=== PATIENT | male | born 1990 | race Caucasian/White ===

== ENCOUNTER 2018-02-27 07:26 | Emergency (ER) | payer MEDICAID ==
[2018-02-27] MEDS ORDERED: HYDROmorphONE/DILAUDID 2 MG/ML INJ IVP ONE (08:10)
[2018-02-27] MEDS ORDERED: KETOROLAC 30 MG/1 ML SDV IVP ONE (08:10)
[2018-02-27] MEDS ORDERED: ONDANSETRON 4 MG/2 ML VIAL IVP ONE (08:10)
[2018-02-27] MEDS ORDERED: NS 1,000 ML IV ONE (08:10)
[2018-02-27] MEDS ORDERED: HYDROmorphONE/DILAUDID 1 MG/ML INJ ONE (08:16)
--- NOTE | 2018-02-27 08:22 | EDPHY ---
H & P Time Seen by Provider: 02/27/18 08:10 HPI/ROS: HPI Kidney stone pain. 17-year-old male by private vehicle with and child. Patient has a history of kidney stones. He reports waking up at 4:00 a.m. This morning with right flank pain with radiation to the right lower quadrant of his abdomen. He reports that he tried to drink fluids and tough it out. He reports the pain is worsening. He reports having nausea with some dry heaving. He reports he has had kidney stones in the past and this is the same pain he has had. ROS: Constitutional: No fever, no chills. No weakness. Respiratory: No cough. No shortness of breath. Cardiac: No chest pain, no palpitations. Gastrointestinal: No abdominal pain, no vomiting, no diarrhea. Genitourinary: No hematuria. No dysuria or increased frequency with urination. Denies testicular pain. Musculoskeletal: As above. No neck pain. No myalgias or arthralgias. Skin: No rashes. Neurological: No headache. No focal weakness or altered sensation. Past medical history: Kidney stones. Social history: Here with his . Nonsmoker. No alcohol. Physical Exam: General Appearance: Alert, he appears uncomfortable. Large man. This patient is responding to questions appropriately and in full sentences. This patient appears well-hydrated and well-nourished. Eyes: Pupils equal and round no pallor or injection. No lid edema, erythema or injection. Respiratory: There are no retractions, lungs are clear to auscultation with good air movement bilaterally. Cardiovascular: Regular rate and rhythm. No murmur. Gastrointestinal: Abdomen is soft with mild and vague right lower tenderness on palpation, no masses, bowel sounds normal. No focal tenderness at McBurney' s point. No Cotton sign. Neurological: Motor sensory function is grossly intact. Cranial nerves are normal. Gait is normal. Skin: Warm and dry, no rashes. Musculoskeletal: Vague right CVA tenderness on palpation. No left-sided CVA tenderness on palpation. Extremities are symmetrical. All joints range without pain or impingement. Psychiatric: No agitation. No depression. Database: EKG: Imaging: CT scan of abdomen and pelvis without contrast: Significant for a small distal ureteral stone on the right side. There is also a focal dilation and thickening of the upper stomach. Etiology unknown. Reading radiologist advises CT scan of abdomen with IV and oral contrast to further clarify. Results were discussed with staff radiologist Dr. Collins Conley. 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 Study otherwise unremarkable. Radiologist recommends no further action. Results discussed with staff radiologist Dr. Collins Conley. Procedures: Emergency department course: Vital signs reviewed and are normal. IV was placed. He was started on IV normal saline with 1-2 L to be given over the next 1-2 hours. Medication allergies reviewed. He has no contraindications to NSAIDs. No history of renal dysfunction or peptic ulcer disease. He will initially be given 30 mg of IV Toradol, 0.5 mg of IV hydromorphone and 4 mg of IV Zofran. He consents for CT imaging to evaluate for a kidney stone. 9:20 a.m., patient re-evaluated. Resting comfortably at this time. Pain is well controlled. He is taking oral fluids. Denies any previous anatomical issues involving as stomach. I discussed the results of his CT as above. He consents for repeat CT imaging with contrast is noted. 10:30 a.m., patient re-evaluated. Resting comfortably at this time. He was given oral Flomax. Results of his CT scan is noted above discussed with him. He feels comfortable going home. I discussed follow-up with Urology. Outpatient management of kidney stones reviewed. I will prescribe him Vicodin Flomax and Zofran. He can start taking ibuprofen again tomorrow morning. He feels comfortable with this plan. Return to emergency department precautions and follow-up discussed with him. All of his questions were answered. He was discharged in good condition. Differential Diagnosis: The differential diagnosis on this patient includes but is not limited to ureterolithiasis. Testicular torsion, appendicitis, colitis unlikely. This represents a partial list of diagnoses considered. These considerations are based on history, physical exam, past history, reassessment and diagnostic testing. Smoking Status: Never smoked Constitutional: Initial Vital Signs Temperature (C) 36.3 C 02/27/18 07:37 Heart Rate 75 02/27/18 07:37 Respiratory Rate 17 02/27/18 07:37 Blood Pressure 138/100 H 02/27/18 07:37 O2 Sat (%) 98 02/27/18 07:37 O2 Delivery Mode Room Air Allergies/Adverse Reactions: aspirin Allergy (Verified 02/27/18 07:36) Home Medications: Medication Instructions Recorded Gabapentin 02/27/18 Hydrocodone/APAP 5/325 [[place] 1 - 2 tab PO Q4-6PRN PRN #10 tab 02/27/18 5/325 (*)] Hydroxyzine HCl 02/27/18 Latuda 02/27/18 Ondansetron Odt [Zofran Odt 4 mg 4 mg PO Q4PRN PRN #10 tab 02/27/18 (*)] Tamsulosin HCl [Flomax 0.4 MG (*)] 0.4 mg PO DAILY #4 cap 02/27/18 Medical Decision Making - Diagnostics Imaging Results: Imaging Impressions Abdomen/Pelvis CT 02/27/18 08:11 Impression: 1. Small distal right ureteral calculus, about the past in the urinary bladder. 2. Unusual appearance to the gastric fundus. It is difficult to exclude an intramural cystic abnormality although there is a suggestion that this communicates with the gastric lumen. Is there history of previous gastric surgery or trauma? If not, recommend CT with oral and IV contrast for further evaluation. 3. Steatosis of the liver without secondary evidence of cirrhosis. Results called and discussed with Reinaldo Pacheco MD, at 02/27/2018 9:07 Attention: This CT examination is specifically designed to evaluate patients who are clinically suspected of having acute obstructive uropathy. This examination does not use radiographic contrast, and as such, provides only a limited evaluation of the abdomen, pelvis and retroperitoneum. If there is further clinical suspicion for pathological conditions other than obstructive uropathy, a complete CT evaluation of the abdomen and pelvis utilizing intravenous, oral, and rectal contrast should be considered. General information for patients regarding this examination can be found at [employer]. If you have questions or comments about this report, please contact me at [phone](hospital) or [phone] (cell). 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 Results called to Dr. Pacheco. General information for patients regarding this examination can be found at [employer]. If you have questions or comments about this report, please contact me at (hospital) or [phone] (cell). - Data Points Laboratory Results: Laboratory Results 02/27/18 08:10 02/27/18 02/27/18 10:20 08:10 Sodium 141 mEq/L mEq/L (135-145) Potassium 4.5 mEq/L mEq/L (3.3-5.0) Chloride 102 mEq/L mEq/L (97-110) Carbon Dioxide 24 mEq/l mEq/l (22-31) Anion Gap 15 mEq/L mEq/L (8-16) BUN 17 mg/dL mg/dL (7-23) Creatinine 1.0 mg/dL mg/dL (0.7-1.3) Estimated GFR > 60 Glucose 115 mg/dL H mg/dL (70-100) Calcium 9.6 mg/dL mg/dL (8.5-10.4) Urine Color YELLOW Urine Appearance CLEAR Urine pH 7.0 (5.0-7.5) Ur Specific Ferguson 1.029 (1.002-1.030) Urine Protein 1+ H (NEGATIVE) Urine Ketones NEGATIVE (NEGATIVE) Urine Blood 1+ H (NEGATIVE) Urine Nitrate NEGATIVE (NEGATIVE) Urine Bilirubin NEGATIVE (NEGATIVE) Urine Urobilinogen NEGATIVE EU EU (0.2-1.0) Ur Leukocyte Esterase NEGATIVE (NEGATIVE) Urine RBC 3-5 /hpf H /hpf (0-3) Urine WBC 1-3 /hpf /hpf (0-3) Ur Epithelial Cells TRACE /lpf /lpf (NONE-1+) Urine Mucus TRACE /lpf /lpf (NONE-1+) Urine Glucose NEGATIVE (NEGATIVE) Medications Given: Discontinued Medications Hydromorphone HCl (Dilaudid) 0.5 mg IVP EDNOW ONE Stop: 02/27/18 08:11 Last Admin: 02/27/18 08:20 Dose: 0.5 mg Sodium Chloride (Ns) 1,000 mls @ 0 mls/hr IV EDNOW ONE; Wide Open PRN Reason: Protocol Stop: 02/27/18 08:11 Last Admin: 02/27/18 08:19 Dose: 1,000 mls Ketorolac Tromethamine (Toradol) 30 mg IVP EDNOW ONE Stop: 02/27/18 08:11 Last Admin: 02/27/18 08:20 Dose: 30 mg Ondansetron HCl (Zofran) 4 mg IVP EDNOW ONE Stop: 02/27/18 08:11 Last Admin: 02/27/18 08:20 Dose: 4 mg Tamsulosin HCl (Flomax) 0.4 mg PO EDNOW ONE Stop: 02/27/18 10:34 Last Admin: 02/27/18 10:43 Dose: 0.4 mg Departure - Departure Disposition: Home, Routine, Self-Care Clinical Impression: Kidney stone on right side, Renal colic on right side Condition: Good Instructions: Kidney Stones (ED) Additional Instructions: Read and follow provided instructions. Follow-up with Urology in the next few days for re-evaluation as discussed. I have also given you a referral to a primary care physician for your ongoing healthcare management. Take medication as prescribed only. You can start taking ibuprofen tomorrow morning. Ibuprofen dosin mg every 6 hours with meals for the next 3 days only. Take only as needed for pain. Return to the emergency department for worsening symptoms, worsening pain, vomiting and inability to keep fluids down despite medications, fever or other serious concerns. Referrals: Glory Zuniga MD [Medical Doctor] - As per Instructions NONE *PRIMARY CARE P,. [Primary Care Provider] - As per Instructions Oscar Ruiz MD [[facility] [place] - As per Instructions Sahil Canales MD [[facility] [place] Primary Care Provider] - As per Instructions Prescriptions: Hydrocodone/APAP 5/325 [[place] 5/325 (*)] 1 - 2 tab PO Q4-6PRN PRN #10 tab PRN Reason: Pain, Moderate Ondansetron Odt [Zofran Odt 4 mg (*)] 4 mg PO Q4PRN PRN #10 tab PRN Reason: For Nausea & Vomiting Tamsulosin HCl [Flomax 0.4 MG (*)] 0.4 mg PO DAILY #4 cap
[2018-02-27] MEDS ORDERED: IOPAMIDOL (ISOVUE-300) 100 ML BTL ONE (09:59)
[2018-02-27] MEDS ORDERED: TAMSULOSIN HCL 0.4 MG CAP PO ONE (10:33)
[2018-02-27 11:09] VITALS: BP 139/93
== END 2018-02-27 11:08 | disposition home or self-care (01) ==
LOC: EDBD 07:26
DX: N20.0 Calculus of kidney (principal); E86.9 Volume depletion, unspecified
CPT/HCPCS: 96374; J1170; J1885; J2405; Q9967

== ENCOUNTER 2018-06-17 19:15 | Emergency (ER) | payer OTHER, MEDICAID ==
--- NOTE | 2018-06-17 19:41 | EDPHY ---
H & P Stated Complaint: DIARRHEA/VOMIT SINCE YEST, WHOLE FAM HAS Time Seen by Provider: 06/17/18 19:39 HPI/ROS: HPI: This is a 27-year-old male who presents with Chief Complaint: DIARRHEA/VOMIT SINCE YEST, WHOLE FAM HAS Location: GI Quality: Diarrhea, vomiting Duration: Since yesterday approximately 24 hr Signs and Symptoms: no fever,+ nausea, + vomiting, no hematemesis, no blood in stool, no abdominal bloating, + diarrhea, no back pain, no urinary symptoms, no testicular/groin pain, no indigestion, no chest pain, no shortness of breath, no abdominal pain Timing: Acute, intermittent episodes Severity: Moderate Context: Patient has a history of kidney stones, posttraumatic stress disorder presents to the emergency room accompanied by his 1-year-old daughter with complaints of sudden onset yesterday of nausea, vomiting 3-5 times yesterday and today and diarrhea approximately 3-5 times yesterday and today. Patient reports that his roommate was diagnosed with a norovirus 3 days ago and was seen in this emergency room. Patient reports that he is drinking Gatorade. Denies fever, blood in stool, hematemesis, back pain, urinary symptoms. Daughter started her symptoms this morning. is at bedside and has no symptoms. No recent antibiotic use or foreign travel. Modifying Factors: None Comment: ROS: A comprehensive 10 system review of systems is otherwise negative aside from elements mentioned in the history of present illness. MEDICAL/SURGICAL/SOCIAL HISTORY: Medical history: Kidney stones, PTSD Surgical history: Denies Social history: Light smoker. Family history noncontributory. CONSTITUTIONAL: Extremely well-appearing adult white male, awake and alert, no obvious distress HEENT: Atraumatic and normocephalic, PERRL, EOMI. Nares patent; no rhinorrhea; no nasal mucosal edema. Tympanic membranes clear. Oropharynx clear, no exudate and moist pink mucosa. Airway patent. No lymphadenopathy. No meningismus. Cardiovascular: Normal S1/S2, regular rate, regular rhythm, without murmur rub or gallop. PULMONARY/CHEST: Symmetrical and nontender. Clear to auscultation bilaterally. Good air movement. No accessory muscle usage. ABDOMEN: Soft, nondistended, nontender, no rebound, no guarding, no peritoneal signs, no masses or organomegaly. No CVAT. EXTREMITIES: 2/2 pulses, strength 5/5, no deformities, no clubbing, no cyanosis or edema. NEUROLOGICAL: no focal neuro deficits. GCS 15. SKIN: Warm and dry, no erythema. no rash. Good capillary refill. Source: Patient Exam Limitations: No limitations - Personal History Current Tetanus/Diphtheria Vaccine: Yes - Medical/Surgical History Hx Asthma: No Hx Chronic Respiratory Disease: No Hx Diabetes: No Hx Cardiac Disease: No Hx Renal Disease: No Hx Cirrhosis: No Hx Alcoholism: No Hx HIV/AIDS: No Hx Splenectomy or Spleen Trauma: No Other PMH: kidney stones, PTSD - Social History Smoking Status: Light smoker Constitutional: Initial Vital Signs Temperature (C) 36.6 C 06/17/18 19:22 Heart Rate 79 06/17/18 19:22 Respiratory Rate 20 06/17/18 19:22 Blood Pressure 123/97 H 06/17/18 19:22 O2 Sat (%) 97 06/17/18 19:22 O2 Delivery Mode Room Air Allergies/Adverse Reactions: aspirin Allergy (Verified 06/17/18 19:22) Home Medications: Medication Instructions Recorded Gabapentin 02/27/18 Hydroxyzine HCl 02/27/18 Latuda 02/27/18 Ondansetron Odt [Zofran Odt 4 mg 4 mg PO Q4 PRN #12 tab 06/17/18 (*)] Promethazine HCl [Phenergan 25mg 25 mg PO Q6 PRN #12 tab 06/17/18 (*)] Medical Decision Making ED Course/Re-evaluation: Vital signs reviewed and stable. No systemic signs. Abdominal exam is soft and nontender. Doubt surgical process. History is consistent with gastroenteritis. Laboratory studies, IV fluids 1 L normal saline and IV Zofran 4 mg given Labs reviewed. No signs of MANGO/electrolyte imbalance. Reassessed patient. Abdomen soft and nontender. reports moderate relief of symptoms. Passed p.o. Trial without any difficulty. Given a prepack and prescription for Zofran. Advised supportive care. This patient was seen under the supervision of my secondary supervising physician. I evaluated care for this patient independently. Discussed this patient with Dr. Mauro. Differential Diagnosis: Abdominal pain including but not limited to appendicitis, cholecystitis, gastritis and urinary tract infection. - Data Points Laboratory Results: Laboratory Results 06/17/18 20:05 06/17/18 20:05 Sodium 139 mEq/L mEq/L (135-145) Potassium 3.9 mEq/L mEq/L (3.3-5.0) Chloride 104 mEq/L mEq/L (97-110) Carbon Dioxide 24 mEq/l mEq/l (22-31) Anion Gap 11 mEq/L mEq/L (8-16) BUN 17 mg/dL mg/dL (7-23) Creatinine 0.7 mg/dL mg/dL (0.7-1.3) Estimated GFR > 60 Glucose 94 mg/dL mg/dL (70-100) Calcium 9.7 mg/dL mg/dL (8.5-10.4) Medications Given: Discontinued Medications Sodium Chloride (Ns) 1,000 mls @ 0 mls/hr IV EDNOW ONE; Wide Open PRN Reason: Protocol Stop: 06/17/18 19:50 Last Admin: 06/17/18 20:00 Dose: 1,000 mls Ondansetron HCl (Zofran) 4 mg IVP EDNOW ONE Stop: 06/17/18 19:50 Last Admin: 06/17/18 20:01 Dose: 4 mg Ondansetron HCl (Zofran Odt 4 Mg Prepack#2) 1 btl TAKEHOME EDNOW ONE Stop: 06/17/18 19:59 Last Admin: 06/17/18 20:57 Dose: 1 btl Departure - Departure Disposition: Home, Routine, Self-Care Clinical Impression: Gastroenteritis Condition: Good Instructions: Ondansetron (By mouth), Gastroenteritis (ED) Additional Instructions: Wash hands frequently and clean all household surfaces with bleach including linens with hot water. Consume a minimum of 8-10 glasses of water or electrolyte fluid replacement drinks that include Gatorade, Powerade, Pedialyte. Eat a bland diet for the next 48 hours and then slowly advance as tolerated. Take Zofran 1 tab every 4 hours as needed for nausea, vomiting. Take promethazine 1 tab every 6 hr as needed for nausea/vomiting that is not relieved by Zofran. Return to the Emergency Room if symptoms do not resolve in the next 72 hours, you spike a fever > 102 F, or experience intractable abdominal pain/nausea/ vomiting. Referrals: Hayley Graham PA [Primary Care Provider] - As per Instructions Prescriptions: Ondansetron Odt [Zofran Odt 4 mg (*)] 4 mg PO Q4 PRN #12 tab PRN Reason: Nausea/Vomiting, Use 1st Promethazine HCl [Phenergan 25mg (*)] 25 mg PO Q6 PRN #12 tab PRN Reason: Nausea/Vomiting, Use 2nd
[2018-06-17] MEDS ORDERED: ONDANSETRON 4 MG/2 ML VIAL ONE (19:47)
[2018-06-17] MEDS ORDERED: NS 1,000 ML IV ONE (19:49)
[2018-06-17] MEDS ORDERED: ONDANSETRON 4 MG/2 ML VIAL IVP ONE (19:49)
[2018-06-17] MEDS ORDERED: ONDANSETRON 4MG PREPACK#2 BTL TAKEHOME ONE (19:58)
[2018-06-17 21:21] VITALS: BP 132/71
== END 2018-06-17 21:03 | disposition home or self-care (01) ==
DX: K52.9 Noninfective gastroenteritis and colitis, unspecified (principal); E86.9 Volume depletion, unspecified; F17.200 Nicotine dependence, unspecified, uncomplicated
CPT/HCPCS: 96361; 96374; 99284; J2405